=== PATIENT | male | born 1990 | race Two or more races ===

== ENCOUNTER 2020-11-27 18:31 | Emergency (ER) | payer OTHER ==
[~2020-11-27] VITALS: Ht 165.1 cm; Wt 80.7 kg
[2020-11-27 18:45] VITALS: BP 126/75
[2020-11-27] MEDS ORDERED: IBUP-1957 PO (18:56)
[2020-11-27] MEDS ORDERED: AMOX500C2 PO (18:56)
== END 2020-11-27 19:27 | disposition home or self-care (01) ==
LOC: ER 18:31
DX: S01.511A Laceration without foreign body of lip, initial encounter (principal); Z88.8 Allergy status to other drugs, medicaments and biological substances; Y04.0XXA Assault by unarmed brawl or fight, initial encounter; Y93.89 Activity, other specified; Y92.89 Other specified places as the place of occurrence of the external cause; Y99.8 Other external cause status